=== PATIENT | female | born 1975 | race Caucasian/White ===

== ENCOUNTER 2017-11-24 21:30 | Emergency (ER) | payer OTHER ==
[~2017-11-24] VITALS: Ht 175.3 cm; Wt 67.1 kg
[2017-11-24 21:35] VITALS: TEMP 36.9; Ht 175.3 cm; Wt 67.1 kg
[2017-11-24] MEDS ORDERED: PARO1TAB29 PO (22:49)
[2017-11-24] MEDS ORDERED: TOPI100T20 PO (22:49)
[2017-11-24] MEDS ORDERED: GABA-113 PO (22:49)
[2017-11-24] MEDS ORDERED: CLR10 PO (22:49)
[2017-11-24 22:53] LABS: BASO % 0.4 %; BASO ABS # 0.04 K/uL (0-0.2); HEMATOCRIT 41.9 % (37-47); HEMOGLOBIN 14.1 g/dL (12.0-16.0); IG# 0.02 K/uL (0.00-0.02); LYMPH % 32.6 %; LYMPH ABS # 3.13 K/uL (1.2-3.4); MEAN CELL VOLUME 85.5 fL (80-100); MEAN CORPUSCULAR HEMOGLOBIN 28.8 pg (25-34); MEAN CORPUSCULAR HGB CONC 33.7 g/dl (32-36); MEAN PLATELET VOLUME 9.9 fL (7.4-10.4); MONO % 6.1 %; MONO ABS # 0.59 K/uL (0.11-0.59); NEUT % 59.7 %; NEUT ABS # 5.73 K/uL (1.4-6.5); PLATELET COUNT 379 K/uL (130-400); RED CELL DISTRIBUTION WIDTH CV 13.7 % (11.5-14.5); RED CELL DISTRIBUTION WIDTH SD 42.6 fL (36.4-46.3); WHITE BLOOD COUNT 9.61 K/uL (4.8-10.8)
[2017-11-24] MEDS ORDERED: FLUT27.53 NAE (22:53)
[2017-11-24] MEDS ORDERED: VNTHFA/IN INH (22:53)
[2017-11-24] MEDS ORDERED: FLVHFA110 INH (22:59)
[2017-11-24 23:13] LABS: ALBUMIN 3.9 gm/dl (3.4-5.0); CALCIUM 8.2 mg/dl (8.5-10.1); CREATININE 0.93 mg/dl (0.60-1.20); POTASSIUM 3.6 mmol/L (3.5-5.1)
[2017-11-24 23:23] LABS: TOTAL PROTEIN 7.9 gm/dl (6.4-8.2)
[2017-11-24] MEDS ORDERED: NICOTINE 21 MG/24 HR TDSY ONE (23:23)
--- NOTE | 2017-11-25 00:51 | EMERGENCY ROOM VISIT NOTE ---
History Report prepared by Yuliet: Dalia Hart Under the Supervision of: Dr. Sabas Cooper D.O. First contact with patient: 21:55 Chief Complaint: MENTAL HEALTH EVALUATION Stated Complaint: DEPRESSION, ANXIETY, INSOMNIA, DEFENSIVE History of Present Illness The patient is a 41 year old female who presents to the Emergency Room with complaints of a mental health evaluation tonight. The patient states that she is depressed and is having thoughts of suicide and that she has felt like this over the last week. She reports having depression and anxiety. The patient states that she has been to a couple psychiatric units 5 years ago. She reports having alcohol in the last 24 hours, but denies drug use. The patient states that she has hepatitis C. Source of History: patient Onset: tonight Position: other (global) Quality: other (mental health evaluation ) Timing: constant Review of Systems See HPI for pertinent positives & negatives. A total of 10 systems reviewed and were otherwise negative. Past Medical & Surgical Medical Problems: (1) Anxiety (2) Depression (3) Hepatitis C Family History No pertinent family history Social History Smoking Status: Never Smoker Current/Historical Medications Scheduled Gabapentin (Neurontin), 600 MG PO TID Loratadine (Claritin), 10 MG PO DAILY Paroxetine (Paxil), 40 MG PO DAILY Topiramate (Topamax), 100 MG PO BID Scheduled PRN Albuterol Hfa (Ventolin Hfa), 2-4 PUFFS INH Q6H PRN for SOB/Wheezing Fluticasone Propionate (Flovent Hfa), 1 PUFF INH DAILY PRN for Nasal Congestion Allergies Coded Allergies: Zolpidem (Unverified Allergy, Severe, SEIZURES, 11/24/17) Physical Exam Vital Signs Date Time Temp Pulse Resp B/P (MAP) Pulse Ox O2 Delivery O2 Flow Rate FiO2 11/24/17 23:26 64 16 102/75 98 Room Air 11/24/17 21:35 36.9 69 18 123/89 96 Room Air Physical Exam CONSTITUTIONAL/VITAL SIGNS: Reviewed / noted above. GENERAL: Non-toxic in appearance. INTEGUMENTARY: Warm, dry, and Progress. HEAD: Normocephalic. EYES: without scleral icterus or trauma. ENT/OROPHARYNX: clear and moist. LYMPHADENOPATHY/NECK: Is supple without lymphadenopathy or meningismus. RESPIRATORY: Lungs clear and equal. CARDIOVASCULAR: Regular rate and rhythm. GI/ABDOMEN: Soft and nontender. No organomegaly or pulsatile mass. No rebound or guarding. Normal bowel sounds. EXTREMITIES: Warm and well perfused. BACK: No CVA tenderness. NEUROLOGICAL: Intact without focal deficits. PSYCHIATRIC: normal affect. MUSCULOSKELETAL: Normally developed with good muscle tone. PSYCH: Depressed and suicidal ideation. Medical Decision & Procedures Laboratory Results 11/24/17 22:21 Red Blood Count 4.90, Mean Corpuscular Volume 85.5, Mean Corpuscular Hemoglobin 28.8, Mean Corpuscular Hemoglobin Concent 33.7, Mean Platelet Volume 9.9, Neutrophils (%) (Auto) 59.7, Lymphocytes (%) (Auto) 32.6, Monocytes (%) (Auto) 6.1, Eosinophils (%) (Auto) 1.0, Basophils (%) (Auto) 0.4, Neutrophils # (Auto) 5.73, Lymphocytes # (Auto) 3.13, Monocytes # (Auto) 0.59, Eosinophils # (Auto) 0.10, Basophils # (Auto) 0.04 11/24/17 22:21 Test 11/24/17 22:02 11/24/17 22:21 Urine Test NEG (NEG) Urine Opiates Screen NEG (NEG) Urine Methadone, Qualitative NEG (NEG) Urine Barbiturates NEG (NEG) Urine Phencyclidine (PCP) Level NEG (NEG) Ur Amphetamine/Methamphetamine NEG (NEG) MDMA (Ecstasy) Screen NEG (NEG) Urine Benzodiazepines Screen NEG (NEG) Urine Cocaine Metabolite NEG (NEG) Urine Marijuana (THC) NEG (NEG) White Blood Count 9.61 K/uL (4.8-10.8) Red Blood Count 4.90 M/uL (4.2-5.4) Hemoglobin 14.1 g/dL (12.0-16.0) Hematocrit 41.9 % (37-47) Mean Corpuscular Volume 85.5 fL (80-100) Mean Corpuscular Hemoglobin 28.8 pg (25-34) Mean Corpuscular Hemoglobin Concent 33.7 g/dl (32-36) Platelet Count 379 K/uL (130-400) Mean Platelet Volume 9.9 fL (7.4-10.4) Neutrophils (%) (Auto) 59.7 % Lymphocytes (%) (Auto) 32.6 % Monocytes (%) (Auto) 6.1 % Eosinophils (%) (Auto) 1.0 % Basophils (%) (Auto) 0.4 % Neutrophils # (Auto) 5.73 K/uL (1.4-6.5) Lymphocytes # (Auto) 3.13 K/uL (1.2-3.4) Monocytes # (Auto) 0.59 K/uL (0.11-0.59) Eosinophils # (Auto) 0.10 K/uL (0-0.5) Basophils # (Auto) 0.04 K/uL (0-0.2) RDW Standard Deviation 42.6 fL (36.4-46.3) RDW Coefficient of Variation 13.7 % (11.5-14.5) Immature Granulocyte % (Auto) 0.2 % Immature Granulocyte # (Auto) 0.02 K/uL (0.00-0.02) Anion Gap 5.0 mmol/L (3-11) Est Creatinine Clear Calc Drug Dose 83.2 ml/min Estimated GFR () 88.5 Estimated GFR (Non- 76.3 BUN/Creatinine Ratio 16.6 (10-20) Calcium Level 8.2 mg/dl (8.5-10.1) Total Bilirubin 0.5 mg/dl (0.2-1) Aspartate Amino Transf (AST/SGOT) 53 U/L (15-37) Alanine Aminotransferase (ALT/SGPT) 77 U/L (12-78) Alkaline Phosphatase 121 U/L (45-117) Total Protein 7.9 gm/dl (6.4-8.2) Albumin 3.9 gm/dl (3.4-5.0) Globulin 4.0 gm/dl (2.5-4.0) Albumin/Globulin Ratio 1.0 (0.9-2) Thyroid Stimulating Hormone (TSH) 7.870 uIu/ml (0.300-4.500) Salicylates Level < 1.7 mg/dl (2.8-20) Acetaminophen Level < 2 ug/ml (10-30) Ethyl Alcohol mg/dL < 3.0 mg/dl (0-3) Laboratory results as stated above per my review. Medications Administered Medications (Trade) Dose Ordered Sig/Dia Route Start Time Stop Time Status Last Admin Dose Admin Nicotine (Nicoderm Cq 21MG Patch) 1 patch STK-MED ONCE .ROUTE 11/24/17 23:23 11/24/17 23:24 DC 11/24/17 23:28 1 PATCH ED Course 2206: Previous medical records were reviewed. The patient was evaluated in room B6. A complete history and physical examination was performed. 2323: Ordered Nicotine 1 patch .ROUTE. 0030: The patient was signed out to Dr. Earl. Medical Decision differential includes toxic ingestions, self-mutilation, suicidal ideation, suicide attempt, depression. This is a 41-year-old female who presents to the ED with a chief complaint of depression and thoughts of suicide. The patient has had the symptoms for some time. She states that she has been invited to psychiatric facility previously about 5 years ago. She does report a positive history for hepatitis C. Her vital signs are normal. Her physical exam was unremarkable. Her lab work reveals a mildly elevated TSH was otherwise unremarkable. Tox screen is negative. Alcohol was negative. The patient was felt to be stable for psychiatric evaluation and care. The patient is awaiting evaluation. She will be signed out to Dr. earl for further disposition after psychiatric evaluation. Medication Reconcilliation Current Medication List: was personally reviewed by me Blood Pressure Screening Patient's blood pressure: Normal blood pressure Impression Primary Impression: Suicidal ideation Additional Impression: Depression Scribe Attestation The scribe's documentation has been prepared under my direction and personally reviewed by me in its entirety. I confirm that the note above accurately reflects all work, treatment, procedures, and medical decision making performed by me. Departure Information Referrals No Doctor, Assigned (PCP) Patient Instructions My [facility] Problem Qualifiers
--- NOTE | 2017-11-25 05:56 | EMERGENCY ROOM VISIT NOTE ---
ED Visit Note First contact with patient: 05:35 201 signed. No issues reported to me. Patient with depression. Per psychiatric community case manager to be placed in the [facility].
[2017-11-25] MEDS ORDERED: NICOTINE 21 MG/24 HR TDSY TD SCH (09:00)
[2017-11-25 11:56] VITALS: BP 100/68; PULSE 76; O2SAT 94
== END 2017-11-25 12:03 ==
LOC: C.EDB 21:33 → C.EDA 11-25 12:03
DX: R45.851 Suicidal ideations (principal); F32.9 Major depressive disorder, single episode, unspecified; F41.9 Anxiety disorder, unspecified; B19.20 Unspecified viral hepatitis C without hepatic coma; Z79.899 Other long term (current) drug therapy; Z88.8 Allergy status to other drugs, medicaments and biological substances